=== PATIENT | male | born 1980 | race Native Hawaiian/Other Pacific Islander ===

== ENCOUNTER 2018-01-04 14:56 | Emergency (ER) | payer SELFPAY ==
[~2018-01-04] VITALS: Ht 162.6 cm; Wt 54.4 kg
[2018-01-04] MEDS ORDERED: LORAZEPAM 1 MG TABLET ONE (15:08)
[2018-01-04] MEDS: LORAZEPAM 0.5 MG TABLET PO ONE (15:09)
[2018-01-04 15:22] LABS: BASOPHILS # (AUTO) 0.1 K/uL (0.0-8.0); BASOPHILS % (AUTO) 1.3 % (0.0-2.0); EOSINOPHILS % (AUTO) 0.7 % (0.0-7.0); HEMOGLOBIN 15.8 g/dL (12.5-16.3); LYMPHOCYTES # (AUTO) 1.8 K/uL (20.0-40.0); LYMPHOCYTES % (AUTO) 27.3 % (20.5-51.5); MEAN CORPUSCULAR HEMOGLOBIN 31.3 uug (23.8-33.4); MEAN CORPUSCULAR HGB CONC 34 g/dL (32.5-36.3); MEAN CORPUSCULAR VOLUME 93.2 fL (73.0-96.2); MONOCYTES # (AUTO) 0.6 K/uL (2.0-10.0); MONOCYTES % (AUTO) 8.6 % (0.0-11.0); NEUTROPHILS # (AUTO) 4.2 K/uL (1.8-8.9); NEUTROPHILS % (AUTO) 62.1 % (38.5-71.5); PLATELET COUNT (AUTO) 193 K/uL (152-348); RED BLOOD CELL COUNT(AUTO) 5.04 MIL/uL (4.06-5.63); WHITE BLOOD COUNT (AUTO) 6.7 K/uL (3.6-10.2)
[2018-01-04 15:29] LABS: CARBON DIOXIDE 15 mmol/L (21-32); CHLORIDE 108 mmol/L (98-107); CREATININE 1.6 mg/dL (0.6-1.3); GLUCOSE 138 mg/dL (74-106); POTASSIUM 3.9 mmol/L (3.5-5.1); UREA NITROGEN, BLOOD 20 mg/dL (7-18)
[2018-01-04 15:30] LABS: ETHANOL < 3 MG/DL (0-0)
[2018-01-04 15:34] LABS: ALANINE AMINOTRANSFERASE 50 U/L (16-63); ALKALINE PHOSPHATASE 94 U/L (50-136); ASPARTATE AMINOTRANSFERASE 39 U/L (15-37); BILIRUBIN,DIRECT 0.3 mg/dL (0.0-0.2); BILIRUBIN,TOTAL 0.8 mg/dL (0.2-1.0); TOTAL PROTEIN, SERUM 6.8 g/dL (6.4-8.2)
[2018-01-04 15:35] LABS: ACETAMINOPHEN < 2.0 ug/mL (10-30)
[2018-01-04 15:40] LABS: *BILIRUBIN,URIN NEGATIVE (NEGATIVE); *BLOOD, URINE 2+ (NEGATIVE); *CLARITY,URINE CLOUDY (CLEAR); *COLOR,URINE YELLOW (YELLOW); *KETONES,URINE NEGATIVE (NEGATIVE); *PROTEIN,URINE 2+ (NEGATIVE); *UROBILINOGEN,URINE 0.2 E.U./dl (NORMAL); LEUKOCYTE ESTERASE ,URINE 1+ (NEGATIVE); NITRITE, URINE NEGATIVE (NEGATIVE); PH,URINE 5.5 (5.0-8.0); UGLUCOSE NEGATIVE (NEGATIVE)
[2018-01-04 15:43] LABS: *AMPHETAMINE, URINE NEGATIVE (NEGATIVE); *BARBITURATE, URINE NEGATIVE (NEGATIVE); *CANNABINOID, URINE POSITIVE (NEGATIVE); *COCCAINE, URINE NEGATIVE (NEGATIVE); *OPIATE, URINE NEGATIVE (NEGATIVE); *PHENCYCLIDINE SCREEN,URINE NEGATIVE (NEGATIVE)
[2018-01-04 15:46] LABS: BACTERIA,URINE FEW /HPF (NONE SEEN); RBC,URINE 20-50 /HPF (0-3); WBC,URINE 50-80 /HPF (0-3)
[2018-01-04 15:47] LABS: MUCUS,URINE MANY /LPF (0-FEW)
--- NOTE | 2018-01-04 16:25 | NUR ---
Patient discharged to home in stable conditon with mother. Written and verbal after care instructions given. Patient verbalizes understanding of instructions. Stressed follow up.
== END 2018-01-04 16:26 | disposition home or self-care (01) ==
LOC: ER 14:56
DX: F41.9 Anxiety disorder, unspecified (principal); F17.200 Nicotine dependence, unspecified, uncomplicated; Z91.030 Bee allergy status
CPT/HCPCS: 36415; 71045; 80048; 80076; 80307; 80349; 81001; 85025; 93005; 99285; A4663; G0480 ×2; G0481

== ENCOUNTER 2018-01-11 17:33 | Inpatient (IN) | payer SELFPAY ==
[~2018-01-11] VITALS: Ht 162.6 cm; Wt 57.2 kg
[2018-01-11 18:37] LABS: BASOPHILS # (AUTO) 0.1 K/uL (0.0-8.0); BASOPHILS % (AUTO) 1.3 % (0.0-2.0); EOSINOPHILS # (AUTO) 0.1 K/uL (0.0-0.7); EOSINOPHILS % (AUTO) 2.2 % (0.0-7.0); HEMATOCRIT 47.5 % (36.7-47.1); HEMOGLOBIN 15.9 g/dL (12.5-16.3); LYMPHOCYTES # (AUTO) 1.7 K/uL (20.0-40.0); LYMPHOCYTES % (AUTO) 24.9 % (20.5-51.5); MEAN CORPUSCULAR HEMOGLOBIN 31.7 uug (23.8-33.4); MEAN CORPUSCULAR HGB CONC 34 g/dL (32.5-36.3); MEAN CORPUSCULAR VOLUME 94.7 fL (73.0-96.2); MONOCYTES # (AUTO) 0.6 K/uL (2.0-10.0); MONOCYTES % (AUTO) 9.4 % (0.0-11.0); NEUTROPHILS # (AUTO) 4.1 K/uL (1.8-8.9); NEUTROPHILS % (AUTO) 62.2 % (38.5-71.5); PLATELET COUNT (AUTO) 229 K/uL (152-348); RED BLOOD CELL COUNT(AUTO) 5.02 MIL/uL (4.06-5.63); WHITE BLOOD COUNT (AUTO) 6.7 K/uL (3.6-10.2)
[2018-01-11 18:46] LABS: CREATININE 1.5 mg/dL (0.6-1.3); POTASSIUM 4.3 mmol/L (3.5-5.1)
[2018-01-11] MEDS ORDERED: ATIVAN (18:57)
[2018-01-11 18:58] LABS: BILIRUBIN,DIRECT 0.3 mg/dL (0.0-0.2); BILIRUBIN,TOTAL 0.9 mg/dL (0.2-1.0); TOTAL PROTEIN, SERUM 6.9 g/dL (6.4-8.2)
[2018-01-11 18:59] LABS: AMYLASE 59 U/L (25-115); LIPASE 126 U/L (73-393)
[2018-01-11] MEDS ORDERED: LORAZEPAM 1 MG TABLET ONE (19:13)
[2018-01-11] MEDS ORDERED: LORAZEPAM 0.5 MG TABLET PO ONE (19:15)
[2018-01-11] MEDS ORDERED: FUROSEMIDE 40 MG/4 ML VIAL ONE (19:59)
[2018-01-11] MEDS ORDERED: FUROSEMIDE 20 MG/2 ML VIAL IV ONE (20:00)
[2018-01-11] MEDS ORDERED: MORPHINE SULFATE 2 MG/1 ML DISP.SYRIN IV PRN (20:30)
[2018-01-11] MEDS ORDERED: ALBUTEROL SULFATE 2.5 MG/ 0.5 ML NEBU NEB PRN (20:30)
[2018-01-11] MEDS ORDERED: Z GUARD REMEDY PASTE 57 GM TUBE TOP PRN (20:30)
[2018-01-11] MEDS ORDERED: ACETAMINOPHEN 325 MG TABLET PO PRN (20:30)
[2018-01-11] MEDS ORDERED: HYDROCODONE/APAP 5-325MG TABLET PO PRN (20:30)
[2018-01-11] MEDS ORDERED: MAGNESIUM HYDROXIDE 30 ML LIQUID UDC PO PRN (20:30)
[2018-01-11] MEDS ORDERED: ONDANSETRON 4 MG/2 ML VIAL IV PRN (20:30)
[2018-01-11] MEDS: NICOTINE 14 MG/24HR PATCH TD SCH (20:30)
[2018-01-11] MEDS ORDERED: ASPIRIN 81 MG TAB.CHEW PO ONE (20:45)
[2018-01-11] MEDS ORDERED: NITROGLYCERIN 0.4 MG/TAB BOTTLE SL ONE (21:00)
[2018-01-11] MEDS ORDERED: MORPHINE SULFATE 4 MG/1 ML DISP.SYRIN IV PRN (21:00)
[2018-01-11 21:19] VITALS: BP 115/74
[2018-01-11 21:30] VITALS: BP 128/73
[2018-01-11 22:00] VITALS: BP 121/85
[2018-01-11 23:00] VITALS: BP 101/73
[2018-01-11] MEDS ORDERED: FUROSEMIDE 40 MG/4 ML VIAL IV SCH (23:00)
[2018-01-11] MEDS: LORAZEPAM 2 MG/1 ML VIAL IV PRN (23:17)
[2018-01-12] VITALS (16 sets, daily range): BP systolic 94–119; BP diastolic 66–87
[2018-01-12] MEDS ORDERED: MORPHINE SULFATE 2 MG/1 ML DISP.SYRIN IV PRN (00:30)
[2018-01-12 05:27] LABS: BASOPHILS % (AUTO) 0.9 % (0.0-2.0); EOSINOPHILS # (AUTO) 0.2 K/uL (0.0-0.7); EOSINOPHILS % (AUTO) 2.8 % (0.0-7.0); HEMATOCRIT 42.7 % (36.7-47.1); HEMOGLOBIN 14.7 g/dL (12.5-16.3); LYMPHOCYTES # (AUTO) 1.5 K/uL (20.0-40.0); LYMPHOCYTES % (AUTO) 26.2 % (20.5-51.5); MEAN CORPUSCULAR HEMOGLOBIN 31.2 uug (23.8-33.4); MEAN CORPUSCULAR HGB CONC 34 g/dL (32.5-36.3); MONOCYTES # (AUTO) 0.5 K/uL (2.0-10.0); MONOCYTES % (AUTO) 9.2 % (0.0-11.0); NEUTROPHILS # (AUTO) 3.4 K/uL (1.8-8.9); NEUTROPHILS % (AUTO) 60.9 % (38.5-71.5); PLATELET COUNT (AUTO) 205 K/uL (152-348); WHITE BLOOD COUNT (AUTO) 5.6 K/uL (3.6-10.2)
[2018-01-12 05:48] LABS: BILIRUBIN,DIRECT 0.3 mg/dL (0.0-0.2); BILIRUBIN,TOTAL 0.8 mg/dL (0.2-1.0); CREATININE 1.3 mg/dL (0.6-1.3); MAGNESIUM 1.7 mg/dL (1.8-2.4); POTASSIUM 3.4 mmol/L (3.5-5.1); TOTAL PROTEIN, SERUM 6.3 g/dL (6.4-8.2)
[2018-01-12] MEDS ORDERED: POTASSIUM CHLORIDE 20 MEQ TAB.PRT.SR PO ONE (08:30)
[2018-01-12] MEDS: FUROSEMIDE 40 MG/4 ML VIAL IV SCH ×3 (08:53→17:57)
[2018-01-12] MEDS: MAGNESIUM SULFATE/D5W 100 ML IV SCH ×2 (08:54→10:19)
[2018-01-12] MEDS: NICOTINE 14 MG/24HR PATCH TD SCH (09:00)
[2018-01-12 11:17] LABS: ALANINE AMINOTRANSFERASE 54 U/L (16-63); ASPARTATE AMINOTRANSFERASE 35 U/L (15-37)
[2018-01-12 14:09] LABS: *BILIRUBIN,URIN NEGATIVE (NEGATIVE); *BLOOD, URINE 2+ (NEGATIVE); *COLOR,URINE LIGHT YELLOW (YELLOW); *KETONES,URINE NEGATIVE (NEGATIVE); *PROTEIN,URINE NEGATIVE (NEGATIVE); *UROBILINOGEN,URINE 0.2 E.U./dl (NORMAL); LEUKOCYTE ESTERASE ,URINE TRACE (NEGATIVE); NITRITE, URINE NEGATIVE (NEGATIVE); PH,URINE 6.5 (5.0-8.0); UGLUCOSE NEGATIVE (NEGATIVE)
[2018-01-12 14:27] LABS: *CLARITY,URINE SLIGHTLY HAZY (CLEAR)
[2018-01-12 14:28] LABS: MUCUS,URINE FEW /LPF (0-FEW); RBC,URINE 20-50 /HPF (0-3)
[2018-01-12] MEDS: LISINOPRIL 5 MG TABLET PO SCH (15:38)
[2018-01-12 17:41] LABS: CREATININE 1.5 mg/dL (0.6-1.3); POTASSIUM 3.6 mmol/L (3.5-5.1)
[2018-01-12] MEDS: CEFTRIAXONE 1 G in IV DEXTROSE 5% 50 ML IV SCH (17:57)
[2018-01-12] MEDS: TEMAZEPAM 15 MG CAPSULE PO PRN (19:57)
[2018-01-12] MEDS: LORAZEPAM 2 MG/1 ML VIAL IV PRN (20:27)
[2018-01-12] MEDS: NYSTATIN SUSPENSION 5 ML LIQUID UDC PO SCH (20:47)
[2018-01-13] VITALS (15 sets, daily range): BP systolic 93–115; BP diastolic 51–80
[2018-01-13 05:14] LABS: BASOPHILS % (AUTO) 0.5 % (0.0-2.0); EOSINOPHILS # (AUTO) 0.2 K/uL (0.0-0.7); HEMATOCRIT 48.9 % (36.7-47.1); HEMOGLOBIN 16.8 g/dL (12.5-16.3); LYMPHOCYTES # (AUTO) 1.1 K/uL (20.0-40.0); LYMPHOCYTES % (AUTO) 13.3 % (20.5-51.5); MEAN CORPUSCULAR HEMOGLOBIN 31.2 uug (23.8-33.4); MEAN CORPUSCULAR HGB CONC 34 g/dL (32.5-36.3); MEAN CORPUSCULAR VOLUME 91.1 fL (73.0-96.2); MONOCYTES # (AUTO) 0.5 K/uL (2.0-10.0); MONOCYTES % (AUTO) 6.3 % (0.0-11.0); NEUTROPHILS # (AUTO) 6.7 K/uL (1.8-8.9); NEUTROPHILS % (AUTO) 77.9 % (38.5-71.5); PLATELET COUNT (AUTO) 254 K/uL (152-348); RED BLOOD CELL COUNT(AUTO) 5.37 MIL/uL (4.06-5.63); WHITE BLOOD COUNT (AUTO) 8.6 K/uL (3.6-10.2)
[2018-01-13 05:28] LABS: PHOSPHOROUS 6.3 mg/dL (2.5-4.9)
[2018-01-13 05:35] LABS: CREATININE 1.3 mg/dL (0.6-1.3); POTASSIUM 3.5 mmol/L (3.5-5.1)
[2018-01-13] MEDS: NYSTATIN SUSPENSION 5 ML LIQUID UDC PO SCH ×4 (07:26→20:23)
[2018-01-13] MEDS: FUROSEMIDE 40 MG/4 ML VIAL IV SCH (07:26)
[2018-01-13] MEDS: LISINOPRIL 5 MG TABLET PO SCH (07:27)
[2018-01-13] MEDS: NICOTINE 14 MG/24HR PATCH TD SCH (07:27)
[2018-01-13] MEDS ORDERED: POTASSIUM CHLORIDE 20 MEQ POWDER PACKET PO ONE (11:15)
[2018-01-13] MEDS: SPIRONOLACTONE 25 MG TABLET PO SCH (12:00)
[2018-01-13] MEDS: METOPROLOL SUCCINATE XL 25 MG TAB.SR.24H PO SCH (12:01)
[2018-01-13] MEDS: LORAZEPAM 2 MG/1 ML VIAL IV PRN (15:31)
[2018-01-13] MEDS: CEFTRIAXONE 1 G in IV DEXTROSE 5% 50 ML IV SCH (16:11)
[2018-01-13] MEDS: TEMAZEPAM 15 MG CAPSULE PO PRN (20:41)
[2018-01-14 00:52] VITALS: BP 89/59
[2018-01-14 04:23] VITALS: BP 104/77
[2018-01-14 05:46] LABS: BASOPHILS # (AUTO) 0.1 K/uL (0.0-8.0); EOSINOPHILS # (AUTO) 0.2 K/uL (0.0-0.7); EOSINOPHILS % (AUTO) 3.6 % (0.0-7.0); HEMATOCRIT 50.6 % (36.7-47.1); HEMOGLOBIN 17.4 g/dL (12.5-16.3); LYMPHOCYTES # (AUTO) 1.4 K/uL (20.0-40.0); LYMPHOCYTES % (AUTO) 23.8 % (20.5-51.5); MEAN CORPUSCULAR HEMOGLOBIN 31.5 uug (23.8-33.4); MEAN CORPUSCULAR HGB CONC 34 g/dL (32.5-36.3); MONOCYTES # (AUTO) 0.6 K/uL (2.0-10.0); MONOCYTES % (AUTO) 9.7 % (0.0-11.0); NEUTROPHILS # (AUTO) 3.6 K/uL (1.8-8.9); NEUTROPHILS % (AUTO) 61.9 % (38.5-71.5); PLATELET COUNT (AUTO) 265 K/uL (152-348); WHITE BLOOD COUNT (AUTO) 5.8 K/uL (3.6-10.2)
[2018-01-14 06:53] LABS: BILIRUBIN,TOTAL 0.6 mg/dL (0.2-1.0); CREATININE 1.4 mg/dL (0.6-1.3); PHOSPHOROUS 4.3 mg/dL (2.5-4.9); POTASSIUM 4.4 mmol/L (3.5-5.1); TOTAL PROTEIN, SERUM 7.2 g/dL (6.4-8.2)
[2018-01-14] MEDS ORDERED: IV NORMAL SALINE 500 ML BAG IV ONE ×2 (09:45→11:47)
[2018-01-14] MEDS: LISINOPRIL 5 MG TABLET PO SCH (09:54)
[2018-01-14] MEDS: NICOTINE 14 MG/24HR PATCH TD SCH (09:54)
[2018-01-14] MEDS: SPIRONOLACTONE 25 MG TABLET PO SCH (09:54)
[2018-01-14] MEDS: NYSTATIN SUSPENSION 5 ML LIQUID UDC PO SCH ×4 (09:55→20:44)
[2018-01-14] MEDS: ASPIRIN EC 81 MG TABLET.DR PO SCH (09:55)
[2018-01-14] MEDS: METOPROLOL SUCCINATE XL 25 MG TAB.SR.24H PO SCH (09:55)
[2018-01-14] MEDS: BUMETANIDE 1 MG TABLET PO SCH (09:55)
[2018-01-14] MEDS ORDERED: IOHEXOL 350 100 ML INFUS..BTL ONE (10:34)
[2018-01-14] MEDS ORDERED: SWABABLE VALVE TRANSFER SET EA MC ONE (10:34)
[2018-01-14] MEDS ORDERED: IV NORMAL SALINE 250 ML IV ONE (10:35)
[2018-01-14 14:17] VITALS: BP 85/58
[2018-01-14] MEDS ORDERED: MIDODRINE HCL 5 MG TABLET PO ONE (14:30)
[2018-01-14 15:54] VITALS: BP 104/85
[2018-01-14 20:00] VITALS: BP 103/70
[2018-01-14] MEDS: TEMAZEPAM 15 MG CAPSULE PO PRN (20:45)
[2018-01-14 23:45] VITALS: BP 105/70
[2018-01-15 04:11] VITALS: BP 100/64
[2018-01-15 05:53] LABS: BASOPHILS % (AUTO) 0.5 % (0.0-2.0); EOSINOPHILS # (AUTO) 0.2 K/uL (0.0-0.7); EOSINOPHILS % (AUTO) 2.6 % (0.0-7.0); HEMATOCRIT 50.1 % (36.7-47.1); HEMOGLOBIN 17.1 g/dL (12.5-16.3); LYMPHOCYTES # (AUTO) 1.7 K/uL (20.0-40.0); LYMPHOCYTES % (AUTO) 26.4 % (20.5-51.5); MEAN CORPUSCULAR HEMOGLOBIN 31.5 uug (23.8-33.4); MEAN CORPUSCULAR HGB CONC 34 g/dL (32.5-36.3); MEAN CORPUSCULAR VOLUME 92.2 fL (73.0-96.2); MONOCYTES # (AUTO) 0.5 K/uL (2.0-10.0); MONOCYTES % (AUTO) 8.2 % (0.0-11.0); NEUTROPHILS # (AUTO) 3.9 K/uL (1.8-8.9); NEUTROPHILS % (AUTO) 62.3 % (38.5-71.5); PLATELET COUNT (AUTO) 253 K/uL (152-348); RED BLOOD CELL COUNT(AUTO) 5.44 MIL/uL (4.06-5.63); WHITE BLOOD COUNT (AUTO) 6.3 K/uL (3.6-10.2)
[2018-01-15] MEDS: LORAZEPAM 2 MG/1 ML VIAL IV PRN ×2 (06:03→06:06)
[2018-01-15 06:11] LABS: BILIRUBIN,TOTAL 0.5 mg/dL (0.2-1.0); CREATININE 1.6 mg/dL (0.6-1.3); MAGNESIUM 1.8 mg/dL (1.8-2.4); PHOSPHOROUS 5.3 mg/dL (2.5-4.9); POTASSIUM 4.3 mmol/L (3.5-5.1); TOTAL PROTEIN, SERUM 7.1 g/dL (6.4-8.2)
[2018-01-15 06:37] VITALS: BP 100/64
[2018-01-15] MEDS: NICOTINE 14 MG/24HR PATCH TD SCH (09:00)
[2018-01-15] MEDS: NYSTATIN SUSPENSION 5 ML LIQUID UDC PO SCH ×4 (09:16→20:35)
[2018-01-15] MEDS: SPIRONOLACTONE 25 MG TABLET PO SCH (09:16)
[2018-01-15] MEDS: ASPIRIN EC 81 MG TABLET.DR PO SCH (09:17)
[2018-01-15] MEDS: BUMETANIDE 1 MG TABLET PO SCH (09:17)
[2018-01-15] MEDS: METOPROLOL SUCCINATE XL 25 MG TAB.SR.24H PO SCH (09:21)
[2018-01-15] MEDS: LISINOPRIL 5 MG TABLET PO SCH (09:21)
[2018-01-15 09:27] VITALS: BP 104/78
[2018-01-15 12:03] VITALS: BP 93/58
[2018-01-15] MEDS ORDERED: METOPROLOL TARTRATE 100 MG TABLET PO ONE (18:00)
[2018-01-15 19:30] VITALS: BP 109/81
[2018-01-15] MEDS ORDERED: diphenhydrAMINE 50 MG/1 ML VIAL IV PRN (19:30)
[2018-01-15 23:50] VITALS: BP 105/62
[2018-01-16 04:00] VITALS: BP 97/64
[2018-01-16 06:33] LABS: BASOPHILS % (AUTO) 0.9 % (0.0-2.0); EOSINOPHILS # (AUTO) 0.2 K/uL (0.0-0.7); EOSINOPHILS % (AUTO) 3.6 % (0.0-7.0); HEMATOCRIT 48.1 % (36.7-47.1); HEMOGLOBIN 16.4 g/dL (12.5-16.3); LYMPHOCYTES # (AUTO) 1.4 K/uL (20.0-40.0); LYMPHOCYTES % (AUTO) 28.6 % (20.5-51.5); MEAN CORPUSCULAR HEMOGLOBIN 31.8 uug (23.8-33.4); MEAN CORPUSCULAR HGB CONC 34 g/dL (32.5-36.3); MEAN CORPUSCULAR VOLUME 93.4 fL (73.0-96.2); MONOCYTES # (AUTO) 0.5 K/uL (2.0-10.0); MONOCYTES % (AUTO) 9.5 % (0.0-11.0); NEUTROPHILS # (AUTO) 2.9 K/uL (1.8-8.9); NEUTROPHILS % (AUTO) 57.4 % (38.5-71.5); PLATELET COUNT (AUTO) 253 K/uL (152-348); RED BLOOD CELL COUNT(AUTO) 5.16 MIL/uL (4.06-5.63)
[2018-01-16 07:09] LABS: BILIRUBIN,TOTAL 0.5 mg/dL (0.2-1.0); CREATININE 1.4 mg/dL (0.6-1.3); MAGNESIUM 2.1 mg/dL (1.8-2.4); PHOSPHOROUS 4.4 mg/dL (2.5-4.9); POTASSIUM 4.1 mmol/L (3.5-5.1); TOTAL PROTEIN, SERUM 6.9 g/dL (6.4-8.2)
[2018-01-16] MEDS ORDERED: METOPROLOL TARTRATE 100 MG TABLET PO ONE (09:00)
[2018-01-16] MEDS: NICOTINE 14 MG/24HR PATCH TD SCH ×2 (09:00→09:27)
[2018-01-16] MEDS: METOPROLOL SUCCINATE XL 50 MG TAB.SR.24H PO SCH (09:20)
[2018-01-16] MEDS: ASPIRIN EC 81 MG TABLET.DR PO SCH (09:27)
[2018-01-16] MEDS: SPIRONOLACTONE 25 MG TABLET PO SCH (09:27)
[2018-01-16] MEDS: LISINOPRIL 5 MG TABLET PO SCH (09:27)
[2018-01-16] MEDS: NYSTATIN SUSPENSION 5 ML LIQUID UDC PO SCH ×4 (09:27→20:47)
[2018-01-16] MEDS: BUMETANIDE 1 MG TABLET PO SCH (09:27)
[2018-01-16 11:50] VITALS: BP 90/64
[2018-01-16 12:56] LABS: *AMPHETAMINE, URINE NEGATIVE (NEGATIVE); *BARBITURATE, URINE NEGATIVE (NEGATIVE); *CANNABINOID, URINE POSITIVE (NEGATIVE); *COCCAINE, URINE NEGATIVE (NEGATIVE); *OPIATE, URINE NEGATIVE (NEGATIVE); *PHENCYCLIDINE SCREEN,URINE NEGATIVE (NEGATIVE)
[2018-01-16 16:33] VITALS: BP 97/71
[2018-01-16 20:19] VITALS: BP 103/78
[2018-01-16] MEDS: ATORVASTATIN 40 MG TABLET PO SCH (20:47)
[2018-01-16] MEDS: TEMAZEPAM 15 MG CAPSULE PO PRN (21:22)
[2018-01-17 01:00] VITALS: BP 97/69
[2018-01-17 06:54] LABS: BILIRUBIN,TOTAL 0.6 mg/dL (0.2-1.0); CREATININE 1.3 mg/dL (0.6-1.3); MAGNESIUM 2.1 mg/dL (1.8-2.4); PHOSPHOROUS 4.9 mg/dL (2.5-4.9); POTASSIUM 4.1 mmol/L (3.5-5.1); TOTAL PROTEIN, SERUM 7.1 g/dL (6.4-8.2)
[2018-01-17 07:02] LABS: BASOPHILS % (AUTO) 0.7 % (0.0-2.0); EOSINOPHILS # (AUTO) 0.2 K/uL (0.0-0.7); EOSINOPHILS % (AUTO) 3.6 % (0.0-7.0); HEMATOCRIT 48.8 % (36.7-47.1); HEMOGLOBIN 16.6 g/dL (12.5-16.3); LYMPHOCYTES # (AUTO) 1.9 K/uL (20.0-40.0); LYMPHOCYTES % (AUTO) 36.5 % (20.5-51.5); MEAN CORPUSCULAR HEMOGLOBIN 31.5 uug (23.8-33.4); MEAN CORPUSCULAR HGB CONC 34 g/dL (32.5-36.3); MEAN CORPUSCULAR VOLUME 92.9 fL (73.0-96.2); MONOCYTES # (AUTO) 0.4 K/uL (2.0-10.0); MONOCYTES % (AUTO) 8.6 % (0.0-11.0); NEUTROPHILS # (AUTO) 2.6 K/uL (1.8-8.9); NEUTROPHILS % (AUTO) 50.6 % (38.5-71.5); PLATELET COUNT (AUTO) 247 K/uL (152-348); RED BLOOD CELL COUNT(AUTO) 5.25 MIL/uL (4.06-5.63); WHITE BLOOD COUNT (AUTO) 5.2 K/uL (3.6-10.2)
[2018-01-17] MEDS ORDERED: METOPROLOL SUCCINATE XL 25 MG TAB.SR.24H PO SCH (09:00)
[2018-01-17] MEDS: NICOTINE 14 MG/24HR PATCH TD SCH ×2 (09:00→09:12)
[2018-01-17 09:07] VITALS: BP 102/71
[2018-01-17] MEDS: NYSTATIN SUSPENSION 5 ML LIQUID UDC PO SCH ×4 (09:13→20:28)
[2018-01-17] MEDS: SPIRONOLACTONE 25 MG TABLET PO SCH (09:13)
[2018-01-17] MEDS: METOPROLOL SUCCINATE XL 50 MG TAB.SR.24H PO SCH ×2 (09:13→17:06)
[2018-01-17] MEDS: ASPIRIN EC 81 MG TABLET.DR PO SCH (09:13)
[2018-01-17] MEDS: BUMETANIDE 1 MG TABLET PO SCH (09:13)
[2018-01-17] MEDS: LISINOPRIL 5 MG TABLET PO SCH (09:13)
[2018-01-17 11:00] VITALS: BP 92/61
[2018-01-17 16:07] VITALS: BP 93/58
[2018-01-17 17:00] VITALS: BP 112/79
[2018-01-17 19:00] VITALS: BP 110/75
[2018-01-17] MEDS: ATORVASTATIN 40 MG TABLET PO SCH (20:26)
[2018-01-18] VITALS: BP 96/65
[2018-01-18 04:00] VITALS: BP 86/66
[2018-01-18 06:32] LABS: BASOPHILS # (AUTO) 0.1 K/uL (0.0-8.0); BASOPHILS % (AUTO) 1.2 % (0.0-2.0); EOSINOPHILS # (AUTO) 0.2 K/uL (0.0-0.7); EOSINOPHILS % (AUTO) 4.1 % (0.0-7.0); HEMATOCRIT 52.3 % (36.7-47.1); HEMOGLOBIN 17.9 g/dL (12.5-16.3); LYMPHOCYTES # (AUTO) 1.9 K/uL (20.0-40.0); MEAN CORPUSCULAR HEMOGLOBIN 31.9 uug (23.8-33.4); MEAN CORPUSCULAR HGB CONC 34 g/dL (32.5-36.3); MEAN CORPUSCULAR VOLUME 93.3 fL (73.0-96.2); MONOCYTES # (AUTO) 0.5 K/uL (2.0-10.0); MONOCYTES % (AUTO) 9.1 % (0.0-11.0); NEUTROPHILS % (AUTO) 51.6 % (38.5-71.5); PLATELET COUNT (AUTO) 289 K/uL (152-348); RED BLOOD CELL COUNT(AUTO) 5.61 MIL/uL (4.06-5.63); WHITE BLOOD COUNT (AUTO) 5.7 K/uL (3.6-10.2)
[2018-01-18 06:45] LABS: CREATININE 1.3 mg/dL (0.6-1.3); MAGNESIUM 2.1 mg/dL (1.8-2.4); PHOSPHOROUS 5.6 mg/dL (2.5-4.9)
[2018-01-18 08:45] VITALS: BP 94/70
[2018-01-18] MEDS: METOPROLOL SUCCINATE XL 50 MG TAB.SR.24H PO SCH (08:50)
[2018-01-18] MEDS: NICOTINE 14 MG/24HR PATCH TD SCH (09:00)
[2018-01-18] MEDS: NYSTATIN SUSPENSION 5 ML LIQUID UDC PO SCH ×3 (09:00→17:18)
[2018-01-18] MEDS: LISINOPRIL 5 MG TABLET PO SCH ×2 (10:30→14:40)
[2018-01-18 11:36] VITALS: BP 90/59
[2018-01-18] MEDS: SPIRONOLACTONE 25 MG TABLET PO SCH (11:47)
[2018-01-18] MEDS: BUMETANIDE 1 MG TABLET PO SCH (11:47)
[2018-01-18] MEDS: ASPIRIN EC 81 MG TABLET.DR PO SCH (11:47)
[2018-01-18 15:00] VITALS: BP 109/77
[2018-01-18] MEDS ORDERED: LISI-607 PO (17:39)
[2018-01-18] MEDS ORDERED: METO50TA7 PO (17:39)
[2018-01-18] MEDS ORDERED: ASPI-618 PO (17:39)
[2018-01-18] MEDS ORDERED: ATOR40TA PO (17:39)
[2018-01-18] MEDS ORDERED: BUME1TAB4 PO (17:39)
[2018-01-18] MEDS ORDERED: SPIR25TA PO (17:39)
[2018-01-19] MEDS ORDERED: METOPROLOL SUCCINATE XL 50 MG TAB.SR.24H PO SCH (09:00)
== END 2018-01-18 17:58 | disposition home or self-care (01) | DRG 280 ==
LOC: ER 17:34 → CCU 20:43 → TELE 01-13 11:42
PROVIDERS: ADMIT Nurse Practitioner Acute Care; ATTEND Nurse Practitioner Acute Care
DX: I50.23 Acute on chronic systolic (congestive) heart failure (principal); N17.0 Acute kidney failure with tubular necrosis; I21.A1 Myocardial infarction type 2; J15.6 Pneumonia due to other Gram-negative bacteria; J15.9 Unspecified bacterial pneumonia; I42.0 Dilated cardiomyopathy; B37.0 Candidal stomatitis; N13.2 Hydronephrosis with renal and ureteral calculous obstruction; N39.0 Urinary tract infection, site not specified; E44.0 Moderate protein-calorie malnutrition; E83.42 Hypomagnesemia; I08.1 Rheumatic disorders of both mitral and tricuspid valves; E87.6 Hypokalemia; Z68.21 Body mass index [BMI] 21.0-21.9, adult; R73.9 Hyperglycemia, unspecified; F17.210 Nicotine dependence, cigarettes, uncomplicated; A49.9 Bacterial infection, unspecified; E83.39 Other disorders of phosphorus metabolism; T88.7XXA Unspecified adverse effect of drug or medicament, initial encounter; T50.2X5A Adverse effect of carbonic-anhydrase inhibitors, benzothiadiazides and other diuretics, initial encounter; Y92.89 Other specified places as the place of occurrence of the external cause; Z87.442 Personal history of urinary calculi; Z82.3 Family history of stroke; Z82.49 Family history of ischemic heart disease and other diseases of the circulatory system; Z91.030 Bee allergy status; F41.9 Anxiety disorder, unspecified; F14.11 Cocaine abuse, in remission
CPT/HCPCS: 36415; 70030-TC; 71045; 71046; 71275; 80307; 83690; 83735; 84100; 84450; 84460; 85025; 85730; 87086; 87806; 93005; 93307; 94664; A4663; J0696; J1940; J2060; J2405; J3475; J3490; J7040; J7050; J7060; Q9967